=== PATIENT | female | born 1970 | race Caucasian/White ===

== ENCOUNTER 2016-06-21 11:51 | Outpatient (RCR) | payer OTHER ==
--- OUTSIDE RECORDS SUMMARY | 2016-05-02 09:04 | XMS REPORT | Continuity of Care Document ---
Author Author [facility] Organization [facility] Address Unknown Phone Unavailable Care Team Providers Care Sr. Payroll Processor Name Role Phone DIA SNELL DO PCP Insurance Providers Payer Name Policy Number Subscriber Name Relationship Enter Insurance Name [id number] Bishnu Mcguire [facility] [id number] iBshnu Mcguire Advance Directives Directive Response Recorded Date/Time Advance Directives No 11/13/14 11:50am Health Care Power of Fish Warden Yes 11/13/14 11:50am Organ Donor No 11/13/14 11:50am Problems No problem information available. Medications Current Home Medications Medication Dose Units Route Directions Days/Qty Instructions Start Date Lisinopril/Hydrochlorothiazide 1 Tab 2 Tab Oral Daily 11/06/14 Metformin Hcl (Glucophage Xr) 500 Mg 500 Mg Oral Daily With Meal Cyanocobalamin 1,000 Mcg 1,000 Mcg Oral Daily 11/06/14 Multivitamins 1 Each 1 Each Oral Daily 11/06/14 Hydrocodone/Acetaminophen 1 Each 1-2 Tab Oral Every 4HRS as needed for Pain 40 11/13/14 Levothyroxine Sodium 112 Mcg 112 Mcg Oral Daily 30 11/14/14 Past Home Medications Medication Directions Ordered Status [Simvastatin] , Daily 06/09/11 Discontinued [Onglyza] , Daily 06/09/11 Discontinued Social History Social History Problem Response Recorded Date/Time Alcohol Use Occasionally Uses 11/13/2014 11:50am Recreational Drug Use No 11/13/2014 11:50am Recent Foreign Travel No 08/13/2015 2:41pm Hospital Discharge Instructions No hospital discharge instructions. Plan of Care Prescriptions See Medication Section Functional Status No functional status results. Allergies, Adverse Reactions, Alerts No known allergies. Immunizations No immunization records. Vital Signs No known vital signs results. Results Laboratory Results Test Name Result Units Flags Reference Collection Date/Time Result Date/ Time Comments White Blood Count 6.3 10^3/uL 4.3-11.0 11/09/2015 2:07pm 11/09/2015 2: 12pm Red Blood Count 4.18 10^6/uL L 4.35-5.85 11/09/2015 2:07pm 11/09/2015 2: 12pm Hemoglobin 12.1 G/DL 11.5-16.0 11/09/2015 2:07pm 11/09/2015 2:12pm Hematocrit 38 % 35-52 11/09/2015 2:0711/09/2015 2:12pm Mean Corpuscular Volume 91 FL 80-99 11/09/2015 2:07pm 11/09/2015 2: 12pm Mean Corpuscular Hemoglobin 29 PG 25-34 11/09/2015 2:07pm 11/09/2015 2: 12pm Mean Corpuscular Hemoglobin Concent 32 G/DL 32-36 11/09/2015 2:07 2:12pm Red Cell Distribution Width 14.6 % H 10.0-14.5 11/09/2015 2:07pm 2015 2:12pm Platelet Count 300 10^3/uL 130-400 11/09/2015 2:07pm 11/09/2015 2:12pm Mean Platelet Volume 9.2 FL 7.4-10.4 11/09/2015 2:07pm 11/09/2015 2: 12pm Neutrophils (%) (Auto) 70 % 42-75 11/09/2015 2:07pm 11/09/2015 2:12pm Lymphocytes (%) (Auto) 20 % 12-44 11/09/2015 2:0711/09/2015 2:12pm Monocytes (%) (Auto) 8 % 0-12 11/09/2015 2:11/09/2015 2:12pm Eosinophils (%) (Auto) 2 % 0-10 11/09/2015 2:11/09/2015 2:12pm Basophils (%) (Auto) 1 % 0-10 11/09/2015 2:11/09/2015 2:12pm Neutrophils # (Auto) 4.4 X 10^3 1.8-7.8 11/09/2015 2:0711/09/2015 2: 12pm Lymphocytes # (Auto) 1.3 X 10^3 1.0-4.0 11/09/2015 2:11/09/2015 2: 12pm Monocytes # (Auto) 0.5 X 10^3 0.0-1.0 11/09/2015 2:0711/09/2015 2: 12pm Eosinophils # (Auto) 0.1 10^3/uL 0.0-0.3 11/09/2015 2:11/09/2015 2 :12pm Basophils # (Auto) 0.0 10^3/uL 0.0-0.1 11/09/2015 2:0711/09/2015 2: 12pm Sodium Level 137 MMOL/L 135-145 11/09/2015 2:0711/09/2015 2:38pm Potassium Level 4.2 MMOL/L 3.6-5.0 11/09/2015 2:11/09/2015 2:38pm Chloride Level 105 MMOL/L 98-107 11/09/2015 2:11/09/2015 2:38pm Carbon Dioxide Level 22 MMOL/L 21-32 11/09/2015 2:0711/09/2015 2: 38pm Anion Gap 10 MMOL/L 5-14 11/09/2015 2:0711/09/2015 2:38pm Blood Urea Nitrogen 21 MG/DL H 7-18 11/09/2015 2:0711/09/2015 2:38pm Creatinine 1.19 MG/DL 0.60-1.30 11/09/2015 2:0711/09/2015 2:38pm BUN/Creatinine Ratio 18 11/09/2015 2:0711/09/2015 2:38pm Estimat Glomerular Filtration Rate 49 11/09/2015 2:07pm 11/09/2015 2:38pm GFR INTERPRETIVE DATA UNITS FOR ESTIMATED GFR (eGFR): mL/min/1.73 M2 REFERENCE RANGE FOR ESTIMATED GFR (eGFR) eGFR NORMAL eGFR >60 MODERATELY DECREASED eGFR 30-59 SEVERLY DECREASED eGFR 15-29 KIDNEY FAILURE <15 (OR DIALYSIS) Glucose Level 108 MG/DL H 70-105 11/09/2015 2:07pm 11/09/2015 2:38pm Calcium Level 9.3 MG/DL 8.5-10.1 11/09/2015 2:07pm 11/09/2015 2:38pm Total Bilirubin 0.2 MG/DL 0.1-1.0 11/09/2015 2:07pm 11/09/2015 2:38pm Alkaline Phosphatase 67 U/L 40-136 11/09/2015 2:07pm 11/09/2015 2:38pm Aspartate Amino Transf (AST/SGOT) 16 U/L 5-34 11/09/2015 2:07pm 2015 2:38pm Alanine Aminotransferase (ALT/SGPT) 23 U/L 0-55 11/09/2015 2:07pm 11/08 2:38pm Total Protein 6.8 G/DL 6.4-8.2 11/09/2015 2:07pm 11/09/2015 2:38pm Albumin 3.8 G/DL 3.2-4.5 11/09/2015 2:07pm 11/09/2015 2:38pm Thyroid Stimulating Hormone (TSH) 0.03 UIU/ML L 0.35-4.94 11/09/2015 2: 0711/09/2015 3:00pm Thyroglobulin Antibody 0.04 Units 0.00-0.50 11/09/2015 2:07pm 2015 4:02pm Test performed at [facility], CLIA# [id number] Procedures No known history of procedures. Encounters Encounter Location Arrival/Admit Date Discharge/Depart Date Attending Provider Discharged Recurring [facility] 11/09/15 1:59pm 11:59pm ABDIEL CARRENO
[2016-05-02 09:47] LABS: BASOPHILS % (AUTO) 1 % (0-10); EOSINOPHILS # (AUTO) 0.1 10^3/uL (0.0-0.3); EOSINOPHILS % (AUTO) 2 % (0-10); LYMPHOCYTES # (AUTO) 1.1 X 10^3 (1.0-4.0); LYMPHOCYTES % (AUTO) 19 % (12-44); MEAN CORPUSCULAR HEMOGLOBIN 30 PG (25-34); MEAN CORPUSCULAR HGB CONC 33 G/DL (32-36); MEAN CORPUSCULAR VOLUME 91 FL (80-99); MEAN PLATELET VOLUME 9.2 FL (7.4-10.4); MONOCYTES # (AUTO) 0.3 X 10^3 (0.0-1.0); MONOCYTES % (AUTO) 5 % (0-12); NEUTROPHILS # (AUTO) 4.3 X 10^3 (1.8-7.8); NEUTROPHILS % (AUTO) 74 % (42-75); PLATELET COUNT 225 10^3/uL (130-400); RED BLOOD COUNT 4.57 10^6/uL (4.35-5.85); RED CELL DISTRIBUTION WIDTH 14.2 % (10.0-14.5); WHITE BLOOD COUNT 5.8 10^3/uL (4.3-11.0)
[2016-05-02 10:25] LABS: ALANINE AMINOTRANSFERASE 22 U/L (0-55); ALBUMIN 3.8 G/DL (3.2-4.5); ANION GAP 8 MMOL/L (5-14); ASPARTATE AMINO TRANSFERASE 13 U/L (5-34); BILIRUBIN,TOTAL 0.3 MG/DL (0.1-1.0); BLOOD UREA NITROGEN 13 MG/DL (7-18); BUN/CREATININE RATIO 14; CALCIUM 9.6 MG/DL (8.5-10.1); CARBON DIOXIDE 25 MMOL/L (21-32); CHLORIDE 105 MMOL/L (98-107); CREATININE SERUM 0.91 MG/DL (0.60-1.30); GFR ESTIMATED > 60; GLUCOSE 169 MG/DL (70-105); SODIUM 138 MMOL/L (135-145); TOTAL PROTEIN 6.9 G/DL (6.4-8.2)
[2016-05-02 10:45] LABS: THYROID STIMULATING HORMONE 0.04 UIU/ML (0.35-4.94)
[2016-05-04 07:59] LABS: THYROGLOBULIN AUTOANTIBODY PT 0.05 Units (0.00-0.50)
[2016-05-05 07:16] LABS: THYROGLOBULIN LEVELC 3.61 ng/mL (1.60-59.90)
[~2016-06-21 11:51] MED LIST: CYAN10007 PO; HYDR-3729 PO; HYDR-757 PO; LISI1TAB8 PO; LVT.112T PO; METF500T8 PO; MULT1CAP27 PO; ONGLYZA; SIMVASTATIN
== END 2016-07-31 | disposition home or self-care (01) ==
LOC: ONC 11:51
PROVIDERS: ATTEND Internal Medicine Hematology & Oncology
DX: C73 Malignant neoplasm of thyroid gland (principal); E89.0 Postprocedural hypothyroidism; Z79.899 Other long term (current) drug therapy
CPT/HCPCS: 36415; 80053; 84432; 84443; 85025; 86800; 99213

== ENCOUNTER 2016-08-02 14:42 | Outpatient (RCR) | payer OTHER ==
--- OUTSIDE RECORDS SUMMARY | 2016-08-02 14:45 | XMS REPORT | Continuity of Care Document ---
Author Author [facility] Organization [facility] Address Unknown Phone Unavailable Care Team Providers Care Neuropsychology Director Name Role Phone DIA SNELL DO PCP Insurance Providers Payer Name Policy Number Subscriber Name Relationship Enter Insurance Name [id number] Bishnu Mcguire [facility] [id number] Bishnu Mcguire Advance Directives Directive Response Recorded Date/Time Advance Directives No 11/13/14 11:50am Health Care Power of Wellness Assistant Yes 11/13/14 11:50am Organ Donor No 11/13/14 [...] 11/09/2015 2:07pm 2015 4:02pm Test performed at [facility], CLIA# [id number] Procedures No known history of procedures. Encounters Encounter Location Arrival/Admit Date Discharge/Depart Date Attending Provider Discharged Recurring [facility] 11/09/15 1:59pm 11:59pm ABDIEL CARRENO
[2016-08-02 14:51] LABS: BASOPHILS % (AUTO) 0 % (0-10); EOSINOPHILS # (AUTO) 0.2 10^3/uL (0.0-0.3); EOSINOPHILS % (AUTO) 2 % (0-10); LYMPHOCYTES # (AUTO) 1.7 X 10^3 (1.0-4.0); LYMPHOCYTES % (AUTO) 23 % (12-44); MEAN CORPUSCULAR HEMOGLOBIN 30 PG (25-34); MEAN CORPUSCULAR HGB CONC 33 G/DL (32-36); MEAN CORPUSCULAR VOLUME 90 FL (80-99); MONOCYTES # (AUTO) 0.4 X 10^3 (0.0-1.0); MONOCYTES % (AUTO) 6 % (0-12); NEUTROPHILS % (AUTO) 69 % (42-75); PLATELET COUNT 241 10^3/uL (130-400); RED BLOOD COUNT 4.56 10^6/uL (4.35-5.85); RED CELL DISTRIBUTION WIDTH 14.1 % (10.0-14.5); WHITE BLOOD COUNT 7.3 10^3/uL (4.3-11.0)
[2016-08-02 15:17] LABS: ALANINE AMINOTRANSFERASE 28 U/L (0-55); ANION GAP 9 MMOL/L (5-14); ASPARTATE AMINO TRANSFERASE 19 U/L (5-34); BILIRUBIN,TOTAL 0.3 MG/DL (0.1-1.0); BLOOD UREA NITROGEN 18 MG/DL (7-18); BUN/CREATININE RATIO 19; CALCIUM 9.4 MG/DL (8.5-10.1); CARBON DIOXIDE 25 MMOL/L (21-32); CHLORIDE 105 MMOL/L (98-107); CREATININE SERUM 0.97 MG/DL (0.60-1.30); GFR ESTIMATED > 60; GLUCOSE 96 MG/DL (70-105); SODIUM 139 MMOL/L (135-145); TOTAL PROTEIN 7.1 G/DL (6.4-8.2)
[2016-08-02 15:39] LABS: THYROID STIMULATING HORMONE 0.08 UIU/ML (0.35-4.94)
[2016-08-02 15:46] LABS: BILIRUBIN,URINE NEGATIVE (NEGATIVE); KETONES,URINE NEGATIVE (NEGATIVE); LEUKOCYTE ESTERASE ,URINE 1+ (NEGATIVE); NITRITE,URINE NEGATIVE (NEGATIVE); PH,URINE 5 (5-9); PROTEIN,URINE NEGATIVE (NEGATIVE); UROBILINOGEN,URINE NORMAL (NORMAL)
[2016-08-02 15:56] LABS: SQUAMOUS EPITHELIAL CELL,UR 25-50 /HPF
[2016-08-03 13:27] LABS: THYROGLOBULIN AUTOANTIBODY PT 0.04 Units (0.00-0.50)
[2016-08-04 07:47] LABS: THYROGLOBULIN LEVELC 4.95 ng/mL (1.60-59.90)
== END 2016-10-31 | disposition home or self-care (01) ==
LOC: ONC 14:42
PROVIDERS: ATTEND Internal Medicine Hematology & Oncology
DX: C73 Malignant neoplasm of thyroid gland (principal); E89.0 Postprocedural hypothyroidism; Z79.899 Other long term (current) drug therapy
CPT/HCPCS: 36415; 80053; 81000; 84432; 84443; 85025; 86800; 99213

== ENCOUNTER 2016-11-02 14:34 | Outpatient (RCR) | payer OTHER ==
[2016-11-02 15:00] LABS: BASOPHILS % (AUTO) 1 % (0-10); EOSINOPHILS # (AUTO) 0.1 10^3/uL (0.0-0.3); EOSINOPHILS % (AUTO) 2 % (0-10); LYMPHOCYTES # (AUTO) 1.5 X 10^3 (1.0-4.0); LYMPHOCYTES % (AUTO) 23 % (12-44); MEAN CORPUSCULAR HEMOGLOBIN 30 PG (25-34); MEAN CORPUSCULAR HGB CONC 33 G/DL (32-36); MEAN CORPUSCULAR VOLUME 92 FL (80-99); MEAN PLATELET VOLUME 9.7 FL (7.4-10.4); MONOCYTES # (AUTO) 0.5 X 10^3 (0.0-1.0); MONOCYTES % (AUTO) 8 % (0-12); NEUTROPHILS # (AUTO) 4.5 X 10^3 (1.8-7.8); NEUTROPHILS % (AUTO) 67 % (42-75); PLATELET COUNT 231 10^3/uL (130-400); RED BLOOD COUNT 4.33 10^6/uL (4.35-5.85); RED CELL DISTRIBUTION WIDTH 14.8 % (10.0-14.5); WHITE BLOOD COUNT 6.8 10^3/uL (4.3-11.0)
[2016-11-02 15:17] LABS: ALANINE AMINOTRANSFERASE 31 U/L (0-55); ALBUMIN 3.9 G/DL (3.2-4.5); ANION GAP 9 MMOL/L (5-14); ASPARTATE AMINO TRANSFERASE 25 U/L (5-34); BILIRUBIN,TOTAL 0.3 MG/DL (0.1-1.0); BLOOD UREA NITROGEN 20 MG/DL (7-18); BUN/CREATININE RATIO 21; CALCIUM 9.4 MG/DL (8.5-10.1); CARBON DIOXIDE 23 MMOL/L (21-32); CHLORIDE 106 MMOL/L (98-107); CREATININE SERUM 0.96 MG/DL (0.60-1.30); GFR ESTIMATED > 60; GLUCOSE 122 MG/DL (70-105); POTASSIUM 3.9 MMOL/L (3.6-5.0); SODIUM 138 MMOL/L (135-145); TOTAL PROTEIN 7.3 G/DL (6.4-8.2)
[2016-11-02 15:36] LABS: THYROID STIMULATING HORMONE 0.05 UIU/ML (0.35-4.94)
[2016-11-03 07:22] LABS: THYROGLOBULIN LEVELC 2.73 ng/mL (1.60-59.90)
[2016-11-04 07:02] LABS: THYROGLOBULIN AUTOANTIBODY PT 0.04 Units (0.00-0.50)
== END 2017-01-31 | disposition home or self-care (01) ==
LOC: ONC 14:34
PROVIDERS: ATTEND Internal Medicine Hematology & Oncology
DX: C73 Malignant neoplasm of thyroid gland (principal); E89.0 Postprocedural hypothyroidism; Z79.899 Other long term (current) drug therapy
CPT/HCPCS: 36415; 80053; 84432; 84443; 85025; 86800; 99213

== ENCOUNTER → 2017-01-02 | Outpatient (CLI) | payer OTHER ==
--- NOTE | 2017-01-02 19:01 | Diagnostic Imaging Report ---
Bilateral screening mammogram. The current study was also evaluated with a Computer Aided Detection (CAD) system. INDICATION: Screening. No current complaints stated on the questionnaire. COMPARISON: 12/31/15. FINDINGS: The breasts are composed of heterogeneously dense parenchyma which may decrease mammographic sensitivity. There is no mass, architectural distortion or suspicious cluster of calcification. Allowing for technique and positional differences, no suspicious change is seen. IMPRESSION: No significant change. ACR BI-RADS Category 2: Benign findings. Result letter will be mailed to the patient. Note: At least 10% of breast cancer is not imaged by mammography. Dictated by: Dictated on workstation # [id number]
== END ==
LOC: RAD 10:44
PROVIDERS: ATTEND Nurse Practitioner Adult Health
DX: Z12.31 Encounter for screening mammogram for malignant neoplasm of breast (principal)
CPT/HCPCS: 77067

== ENCOUNTER 2017-02-13 12:47 | Outpatient (RCR) | payer OTHER ==
[2017-02-13 12:51] LABS: BASOPHILS % (AUTO) 0 % (0-10); EOSINOPHILS # (AUTO) 0.1 10^3/uL (0.0-0.3); EOSINOPHILS % (AUTO) 2 % (0-10); LYMPHOCYTES # (AUTO) 1.8 X 10^3 (1.0-4.0); LYMPHOCYTES % (AUTO) 19 % (12-44); MEAN CORPUSCULAR HEMOGLOBIN 30 PG (25-34); MEAN CORPUSCULAR HGB CONC 32 G/DL (32-36); MEAN CORPUSCULAR VOLUME 92 FL (80-99); MEAN PLATELET VOLUME 9.2 FL (7.4-10.4); MONOCYTES # (AUTO) 0.6 X 10^3 (0.0-1.0); MONOCYTES % (AUTO) 7 % (0-12); NEUTROPHILS # (AUTO) 6.7 X 10^3 (1.8-7.8); NEUTROPHILS % (AUTO) 72 % (42-75); PLATELET COUNT 250 10^3/uL (130-400); RED BLOOD COUNT 4.41 10^6/uL (4.35-5.85); RED CELL DISTRIBUTION WIDTH 15.4 % (10.0-14.5); WHITE BLOOD COUNT 9.3 10^3/uL (4.3-11.0)
[2017-02-13 13:43] LABS: ALBUMIN 3.7 GM/DL (3.2-4.5); BILIRUBIN,TOTAL 0.4 MG/DL (0.1-1.0); CALCIUM 9.5 MG/DL (8.5-10.1); CREATININE SERUM 1.16 MG/DL (0.60-1.30); POTASSIUM 3.8 MMOL/L (3.6-5.0)
[2017-02-13 14:03] LABS: THYROID STIMULATING HORMONE 0.35 UIU/ML (0.35-4.94)
[2017-02-15 14:09] LABS: THYROGLOBULIN AUTOANTIBODY PT 0.04 Units (0.00-0.50)
[2017-02-16 09:49] LABS: THYROGLOBULIN LEVELC 3.32 ng/mL (1.60-59.90)
== END 2017-03-25 | disposition home or self-care (01) ==
LOC: ONC 12:47
PROVIDERS: ATTEND Internal Medicine Hematology & Oncology
DX: C73 Malignant neoplasm of thyroid gland (principal); E89.0 Postprocedural hypothyroidism; Z79.899 Other long term (current) drug therapy
CPT/HCPCS: 36415; 80053; 84432; 84443; 85025; 86800; 99213

== ENCOUNTER → 2018-01-05 | Outpatient (CLI) | payer OTHER ==
--- NOTE | 2018-01-05 10:52 | Diagnostic Imaging Report ---
Indication: Routine screening. Comparison is made with prior mammograms from 01/02/2017 and 12/31/2015. 2-D and 3-D bilateral screening mammography was performed with CAD. Scattered fibronodular densities are identified bilaterally. No mass or malignant-appearing calcifications are seen. Axillae are unremarkable. Impression: BI-RADS category 1. No mammographic features suspicious for malignancy are identified. ACR BI-RADS Category 1: Negative. Result letter will be mailed to the patient. Note: At least 10% of breast cancer is not imaged by mammography. Dictated by: Dictated on workstation # [id number]
== END ==
LOC: RAD 09:09
PROVIDERS: ATTEND Family Medicine
DX: Z12.31 Encounter for screening mammogram for malignant neoplasm of breast (principal)
CPT/HCPCS: 77067

== ENCOUNTER 2018-02-13 14:29 | Outpatient (RCR) | payer OTHER ==
[~2018-02-13 14:29] MED LIST changes: +HYDR-4226 PO; -HYDR-757 PO
[2018-02-13 14:56] LABS: BASOPHILS % (AUTO) 1 % (0-10); EOSINOPHILS # (AUTO) 0.2 10^3/uL (0.0-0.3); EOSINOPHILS % (AUTO) 3 % (0-10); HEMATOCRIT 43 % (35-52); HEMOGLOBIN 14.1 G/DL (11.5-16.0); LYMPHOCYTES # (AUTO) 1.8 X 10^3 (1.0-4.0); LYMPHOCYTES % (AUTO) 28 % (12-44); MEAN CORPUSCULAR HEMOGLOBIN 30 PG (25-34); MEAN CORPUSCULAR HGB CONC 33 G/DL (32-36); MEAN CORPUSCULAR VOLUME 92 FL (80-99); MEAN PLATELET VOLUME 9.5 FL (7.4-10.4); MONOCYTES # (AUTO) 0.5 X 10^3 (0.0-1.0); MONOCYTES % (AUTO) 8 % (0-12); NEUTROPHILS # (AUTO) 3.9 X 10^3 (1.8-7.8); NEUTROPHILS % (AUTO) 61 % (42-75); PLATELET COUNT 233 10^3/uL (130-400); RED BLOOD COUNT 4.67 10^6/uL (4.35-5.85); RED CELL DISTRIBUTION WIDTH 14.5 % (10.0-14.5); WHITE BLOOD COUNT 6.5 10^3/uL (4.3-11.0)
[2018-02-13 15:14] LABS: ALANINE AMINOTRANSFERASE 36 U/L (0-55); ALBUMIN 3.9 GM/DL (3.2-4.5); ALKALINE PHOSPHATASE 84 U/L (40-136); BILIRUBIN,TOTAL 0.3 MG/DL (0.1-1.0); BUN/CREATININE RATIO 17; CALCIUM 9.6 MG/DL (8.5-10.1); CARBON DIOXIDE 25 MMOL/L (21-32); CHLORIDE 106 MMOL/L (98-107); CREATININE SERUM 0.92 MG/DL (0.60-1.30); GFR ESTIMATED > 60; GLUCOSE 148 MG/DL (70-105); POTASSIUM 4.3 MMOL/L (3.6-5.0); SODIUM 137 MMOL/L (135-145); TOTAL PROTEIN 7.5 GM/DL (6.4-8.2)
== END 2018-02-23 | disposition home or self-care (01) ==
LOC: ONC 14:29
PROVIDERS: ATTEND Internal Medicine Hematology & Oncology
DX: C73 Malignant neoplasm of thyroid gland (principal); E89.0 Postprocedural hypothyroidism; Z79.899 Other long term (current) drug therapy
CPT/HCPCS: 36415; 80053; 84443; 85025; 99213

== ENCOUNTER 2018-05-23 15:37 | Outpatient (RCR) | payer OTHER ==
[2018-05-23 16:12] LABS: BASOPHILS % (AUTO) 1 % (0-10); EOSINOPHILS # (AUTO) 0.1 10^3/uL (0.0-0.3); EOSINOPHILS % (AUTO) 2 % (0-10); HEMATOCRIT 41 % (35-52); HEMOGLOBIN 13.4 G/DL (11.5-16.0); LYMPHOCYTES # (AUTO) 1.7 X 10^3 (1.0-4.0); LYMPHOCYTES % (AUTO) 26 % (12-44); MEAN CORPUSCULAR HEMOGLOBIN 30 PG (25-34); MEAN CORPUSCULAR HGB CONC 33 G/DL (32-36); MEAN CORPUSCULAR VOLUME 91 FL (80-99); MEAN PLATELET VOLUME 9.5 FL (7.4-10.4); MONOCYTES # (AUTO) 0.5 X 10^3 (0.0-1.0); MONOCYTES % (AUTO) 8 % (0-12); NEUTROPHILS # (AUTO) 4.2 X 10^3 (1.8-7.8); NEUTROPHILS % (AUTO) 63 % (42-75); PLATELET COUNT 227 10^3/uL (130-400); RED BLOOD COUNT 4.46 10^6/uL (4.35-5.85); RED CELL DISTRIBUTION WIDTH 13.9 % (10.0-14.5); WHITE BLOOD COUNT 6.6 10^3/uL (4.3-11.0)
== END 2018-06-26 | disposition home or self-care (01) ==
LOC: ONC 15:37
PROVIDERS: ATTEND Internal Medicine Hematology & Oncology
DX: C73 Malignant neoplasm of thyroid gland (principal); E89.0 Postprocedural hypothyroidism; Z79.899 Other long term (current) drug therapy
CPT/HCPCS: 36415; 84443; 85025

== ENCOUNTER 2018-08-15 14:34 | Outpatient (RCR) | payer BC, OTHER ==
[2018-08-08 15:47] LABS: BASOPHILS % (AUTO) 0 % (0-10); EOSINOPHILS # (AUTO) 0.1 10^3/uL (0.0-0.3); EOSINOPHILS % (AUTO) 2 % (0-10); HEMATOCRIT 43 % (35-52); HEMOGLOBIN 13.9 G/DL (11.5-16.0); LYMPHOCYTES # (AUTO) 1.8 X 10^3 (1.0-4.0); LYMPHOCYTES % (AUTO) 27 % (12-44); MEAN CORPUSCULAR HEMOGLOBIN 29 PG (25-34); MEAN CORPUSCULAR HGB CONC 32 G/DL (32-36); MEAN CORPUSCULAR VOLUME 91 FL (80-99); MEAN PLATELET VOLUME 9.5 FL (7.4-10.4); MONOCYTES # (AUTO) 0.5 X 10^3 (0.0-1.0); MONOCYTES % (AUTO) 7 % (0-12); NEUTROPHILS # (AUTO) 4.2 X 10^3 (1.8-7.8); NEUTROPHILS % (AUTO) 63 % (42-75); PLATELET COUNT 239 10^3/uL (130-400); RED CELL DISTRIBUTION WIDTH 14.3 % (10.0-14.5); WHITE BLOOD COUNT 6.7 10^3/uL (4.3-11.0)
[2018-08-08 16:10] LABS: ALANINE AMINOTRANSFERASE 46 U/L (0-55); ALKALINE PHOSPHATASE 97 U/L (40-136); BILIRUBIN,TOTAL 0.3 MG/DL (0.1-1.0); BUN/CREATININE RATIO 24; CALCIUM 9.6 MG/DL (8.5-10.1); CARBON DIOXIDE 26 MMOL/L (21-32); CHLORIDE 104 MMOL/L (98-107); CREATININE SERUM 0.89 MG/DL (0.60-1.30); GFR ESTIMATED > 60; GLUCOSE 139 MG/DL (70-105); POTASSIUM 4.5 MMOL/L (3.6-5.0); SODIUM 138 MMOL/L (135-145); TOTAL PROTEIN 7.3 GM/DL (6.4-8.2)
[2018-08-29] MEDS ORDERED: SITA1TBM7 PO (14:14)
[2018-08-29] MEDS ORDERED: LISI-552 PO (14:14)
[2018-08-29] MEDS ORDERED: LEVO125T6 PO (14:14)
[2018-08-29] MEDS ORDERED: CYAN50005 PO (14:14)
[2018-08-29] MEDS ORDERED: MULT-192 PO (14:14)
[2018-08-29] MEDS ORDERED: CHOL200014 PO (14:14)
== END 2018-11-06 | disposition home or self-care (01) ==
LOC: ONC 14:34
PROVIDERS: ATTEND Internal Medicine Hematology & Oncology
DX: C73 Malignant neoplasm of thyroid gland (principal); E89.0 Postprocedural hypothyroidism; Z79.899 Other long term (current) drug therapy
CPT/HCPCS: 36415; 80053; 84443; 85025; 86800; 99213

== ENCOUNTER 2018-08-29 14:17 | Outpatient (CLI) | payer BC ==
[~2018-08-29] VITALS: Ht 170.2 cm; Wt 98.9 kg
[~2018-08-29 14:17] MED LIST changes: +CHOL200014 PO; +CYAN50005 PO; +LEVO125T6 PO; +LISI-552 PO; +MULT-192 PO; +SITA1TBM7 PO
== END 2018-08-29 14:29 | disposition home or self-care (01) ==
LOC: PREOP 14:17
PROVIDERS: ATTEND Surgery
DX: Z01.818 Encounter for other preprocedural examination (principal)

== ENCOUNTER 2018-09-03 07:38 | Day surgery (SDC) | payer BC ==
[~2018-09-03] VITALS: Ht 170.2 cm; Wt 98.9 kg
[2018-09-03 07:50] VITALS: BP 133/90
[2018-09-03] MEDS ORDERED: NS IV 500 ML 500 ML IV PRN (07:50)
[2018-09-03] MEDS ORDERED: NS IV 500 ML 500 ML ONE (07:51)
[2018-09-03] MEDS ORDERED: fentaNYL INJECTION 100 MCG/2 ML AMP IVP ONE (08:00)
[2018-09-03] MEDS ORDERED: MIDAZOLAM 2 MG/2 ML (VERSED) VIAL IVP ONE (08:00)
--- NOTE | 2018-09-03 08:48 | History & Physicial ---
History of Present Illness History of Present Illness Reason for visit/HPI to undergo screening colonoscopy. No family history of colon cancer Date of Admission 09/03/18 Date Seen by a Provider: Sep 03, 2018 Time Seen by a Provider: 08:47 I consulted on this patient on 09/03/18 08:47 Attending Physician Kemal Corrales MD Admitting Physician Leydi Spencer DO Consult Allergies and Home Medications Allergies Coded Allergies: No Known Drug Allergies (Unverified , 06/09/11) Home Medications Cholecalciferol (Vitamin D3) 2,000 Unit Tablet, 2,000 UNIT PO DAILY, (Reported) Cyanocobalamin (Vitamin B-12) 5,000 Mcg Tab.rapdis, 5,000 MCG PO DAILY, ( Reported) Levothyroxine Sodium 125 Mcg Tablet, 125 MCG PO DAILY, (Reported) Lisinopril 20 Mg Tablet, 20 MG PO DAILY, (Reported) Multivitamin 1 Each Tab.chew, 1 EACH PO DAILY, (Reported) Sitagliptin Phos/Metformin HCl 1 Each Tbmp.24hr, 1 EACH PO DAILY, (Reported) Patient Home Medication List Home Medication List Reviewed: Yes Past Bqefywb-Csmdkd-Qvwles Hx Patient Social History Marrital Status: Employed/Student: employed Alcohol Use: Occasionally Uses Recreational Drug Use: No Smoking Status: Never a Smoker 2nd Hand Smoke Exposure: No Recent Foreign Travel: No Contact w/other who traveled: No Recent Hopitalizations: No Recent Infectious Disease Expo: No Seasonal Allergies Seasonal Allergies: No Surgeries Yes (ROOT CANALS) Thyroidectomy Respiratory No Cardiovascular Yes Hypertension Neurological No Reproductive System Hx Reproductive Disorders: No Genitourinary No Gastrointestinal No Musculoskeletal No Endocrine History of Endocrine Disorders: Yes (PRE-DIABETIC, MULTINODULAR GOITER- THYROIDECTOMY) HEENT History of HEENT Disorders: No Cancer Yes Thyroid Type of Treatment: Radiation, Surgical Intervention Psychosocial History of Psychiatric Problem: No Integumentary History of Skin or Integumenta: No Blood Transfusions History of Blood Disorders: No Family Medical History Family Hx: Arthritis 19 FATHER 19 MOTHER Hypertension 19 FATHER 19 MOTHER Parkinson's disease 19 FATHER Respiratory disorder 19 MOTHER (LUNG CA) Thyroid disease 19 MOTHER G8 SISTER No Family History of: AIDS Abdominal aortic aneurysm Alcoholism Asthma Cancer of mouth Cardiovascular disease Cataracts Colon cancer Completed stroke Diabetes mellitus Drug abuse Kidney disease Myocardial infarction Prostate cancer Psychosocial problem Seizure disorder Severe allergy Review of Systems Constitutional: no symptoms reported EENTM: no symptoms reported Respiratory: no symptoms reported Cardiovascular: no symptoms reported Gastrointestinal: no symptoms reported Musculoskeletal: no symptoms reported Skin: no symptoms reported Psychiatric/Neurological: No Symptoms Reported Physical Exam Vital Signs Vital Signs - First Documented 09/03/18 07:50 Temp 97.7 Pulse 92 Resp 18 B/P (MAP) 133/90 (104) Pulse Ox 99 Capillary Refill : Height, Weight, BMI Height: 5'7.00" Weight: 218lbs. 0.0oz. 98.071663dj; 34.1 BMI Method:Stated General Appearance: No Apparent Distress Neck: Normal Inspection Respiratory: Lungs Clear Cardiovascular: Regular Rate, Rhythm Gastrointestinal: Non Tender, Soft Rectal: Deferred Extremity: Normal Inspection Neurologic/Psychiatric: Oriented x3 Skin: Warm/Dry Assessment/Plan Assessment and Plan lady here to undergo screening colonoscopy. Discussed in detail. Admission Diagnosis Admission Status: Other (Outpt Proc) KEMAL CORRALES MD Sep 03, 2018 08:48
--- NOTE | 2018-09-03 08:49 | Conscious Sedation/ASA ---
Conscious Sedation Pre-Proced Time 08:48 ASA Score 2 For ASA 3 and 4: Consider anesthesia and medical clearance. Also, for patients with a history of failed moderate sedation consider anesthesia. Airway Lungs Heart ASA score ASA 1: a normal healthy patient ASA 2: a patient with a mild systemic disease (mid diabetes, controlled hypertension, obesity ASA 3: a patient with a severe systemic disease that limits activity (angina , COPD, prior Myocardial infarction) ASA 4: a patient with an incapacitating disease that is a constant threat to life (CHF, renal failure) ASA 5: a moribund patient not expected to survive 24 hrs. (ruptured aneurysm) ASA 6: a declared brain- patient whose organs are being harvested. For emergent operations, add the letter E after the classification Mallampati Classification Grade 1 Sedation Plan Discussed options with patient/fam The patient is an appropriate candidate to undergo the planned procedure, sedation, and anesthesia. The patient immediately re-assessed prior to indication. KEMAL CARDENAS MD Sep 03, 2018 08:49
[2018-09-03] MEDS ORDERED: fentaNYL INJECTION 100 MCG/2 ML AMP ONE (08:55)
[2018-09-03] MEDS ORDERED: MIDAZOLAM 2 MG/2 ML (VERSED) VIAL ONE ×4 (08:55)
--- NOTE | 2018-09-03 09:09 | Endo Procedure Record ---
Endo Procedure Report Date of Procedure Last Colonoscopy: No Sep 03, 2018 Surgeon (s) KEMAL CARDENAS MD Post Procedure/Op Diagnosis sigmoid diverticulosis Procedure Performed colonoscopy to cecum Description of Procedure Anesthesia Type: Conscious Sedation Specimen(s) collected/removed none Description of the Procedure Indication for the procedure: This lady came in for screening colonoscopy. She denied any relevant family history. Informed consent was obtained after reviewing the procedure in detail. Description of the procedure: She was placed in left lateral decubitus position and her vital signs were monitored. Conscious sedation was achieved using Versed and fentanyl. Digital rectal examination was unremarkable. The colonoscope was then introduced in the rectum and advanced all the way up to the cecum. The quality of bowel preparation was excellent. The scope was then withdrawn slowly and the mucosa examined in a systematic fashion. Finding: Uncomplicated sigmoid diverticulosis. She tolerated the procedure well and was taken back to the nursing area in a stable condition. Impression: Screening colonoscopy. No polyps. No family history. Recommend repeating in 10 years. Copy Copies To 1: DIA SNELL XAVIER M MD Sep 03, 2018 09:09
--- NOTE | 2018-09-03 09:10 | Discharge Inst-Simple/Standard ---
Discharge Inst-Standard Discharge Medications New, Converted or Re-Newed RX: Other Patient Instructions/Follow Up Plan of Care/Instructions/FU: repeat colonoscopy in 10 years Activity as Tolerated: Yes Discharge Diet: No Restrictions KEMAL CARDENAS MD Sep 03, 2018 09:10
[2018-09-03 09:30] VITALS: BP 130/71
[2018-09-03 10:00] VITALS: BP 113/67
[2018-09-03 10:10] VITALS: BP 113/67
== END 2018-09-03 10:10 | disposition home or self-care (01) ==
LOC: ENDO 07:38
PROVIDERS: ATTEND Surgery
DX: Z12.11 Encounter for screening for malignant neoplasm of colon (principal); K57.30 Diverticulosis of large intestine without perforation or abscess without bleeding; I10 Essential (primary) hypertension; R73.03 Prediabetes; Z85.850 Personal history of malignant neoplasm of thyroid; Z92.3 Personal history of irradiation; Z79.899 Other long term (current) drug therapy
CPT/HCPCS: 82962

== ENCOUNTER → 2019-01-07 | Outpatient (CLI) | payer BC ==
--- NOTE | 2019-01-07 19:53 | Diagnostic Imaging Report ---
INDICATION: Routine screening. Comparison is made with prior mammograms from 01/05/2018 and 01/02/2017. 2-D and 3-D bilateral screening mammography was performed. The current study was also evaluated with a Computer Aided Detection (CAD) system. 3-D tomosynthesis was also performed and reviewed. FINDINGS: Scattered fibroglandular densities are identified bilaterally. The parenchymal pattern is stable. No mass or malignant-appearing microcalcifications are seen. The axillae are unremarkable. IMPRESSION: No mammographic features suspicious for malignancy are identified. ACR BI-RADS Category 1: Negative. Result letter will be mailed to the patient. Note: At least 10% of breast cancer is not imaged by mammography. Dictated by: Dictated on workstation # [id number]
== END ==
LOC: RAD 08:23
PROVIDERS: ATTEND Family Medicine
DX: Z12.31 Encounter for screening mammogram for malignant neoplasm of breast (principal)
CPT/HCPCS: 77067

== ENCOUNTER 2019-02-12 14:37 | Outpatient (RCR) | payer BC ==
[2019-02-07 10:51] LABS: BASOPHILS % (AUTO) 0 % (0-10); EOSINOPHILS # (AUTO) 0.1 10^3/uL (0.0-0.3); EOSINOPHILS % (AUTO) 2 % (0-10); HEMATOCRIT 43 % (35-52); HEMOGLOBIN 13.8 G/DL (11.5-16.0); LYMPHOCYTES # (AUTO) 1.4 X 10^3 (1.0-4.0); LYMPHOCYTES % (AUTO) 28 % (12-44); MEAN CORPUSCULAR HEMOGLOBIN 30 PG (25-34); MEAN CORPUSCULAR HGB CONC 32 G/DL (32-36); MEAN CORPUSCULAR VOLUME 92 FL (80-99); MEAN PLATELET VOLUME 9.2 FL (7.4-10.4); MONOCYTES # (AUTO) 0.3 X 10^3 (0.0-1.0); MONOCYTES % (AUTO) 5 % (0-12); NEUTROPHILS # (AUTO) 3.2 X 10^3 (1.8-7.8); NEUTROPHILS % (AUTO) 65 % (42-75); PLATELET COUNT 211 10^3/uL (130-400); RED CELL DISTRIBUTION WIDTH 14.4 % (10.0-14.5)
[2019-02-07 11:12] LABS: ALANINE AMINOTRANSFERASE 60 U/L (0-55); ALBUMIN 3.9 GM/DL (3.2-4.5); ALKALINE PHOSPHATASE 80 U/L (40-136); BILIRUBIN,TOTAL 0.4 MG/DL (0.1-1.0); BUN/CREATININE RATIO 15; CALCIUM 9.3 MG/DL (8.5-10.1); CARBON DIOXIDE 22 MMOL/L (21-32); CHLORIDE 106 MMOL/L (98-107); CREATININE SERUM 0.92 MG/DL (0.60-1.30); GFR ESTIMATED > 60; GLUCOSE 160 MG/DL (70-105); POTASSIUM 4.6 MMOL/L (3.6-5.0); SODIUM 138 MMOL/L (135-145)
== END 2019-05-08 | disposition home or self-care (01) ==
LOC: ONC 14:37
PROVIDERS: ATTEND Internal Medicine Hematology & Oncology
DX: C73 Malignant neoplasm of thyroid gland (principal); E89.0 Postprocedural hypothyroidism; Z79.899 Other long term (current) drug therapy
CPT/HCPCS: 36415; 80053; 84432; 84443; 85025; 86800; 99213

== ENCOUNTER 2019-10-01 12:34 | Outpatient (RCR) | payer BC ==
[2019-08-07 14:50] LABS: BASOPHILS % (AUTO) 0 % (0-10); EOSINOPHILS # (AUTO) 0.1 10^3/uL (0.0-0.3); EOSINOPHILS % (AUTO) 2 % (0-10); HEMATOCRIT 44 % (35-52); HEMOGLOBIN 14.3 G/DL (11.5-16.0); LYMPHOCYTES # (AUTO) 1.9 X 10^3 (1.0-4.0); LYMPHOCYTES % (AUTO) 27 % (12-44); MEAN CORPUSCULAR HEMOGLOBIN 30 PG (25-34); MEAN CORPUSCULAR HGB CONC 33 G/DL (32-36); MEAN CORPUSCULAR VOLUME 92 FL (80-99); MEAN PLATELET VOLUME 9.4 FL (7.4-10.4); MONOCYTES # (AUTO) 0.5 X 10^3 (0.0-1.0); MONOCYTES % (AUTO) 8 % (0-12); NEUTROPHILS # (AUTO) 4.6 X 10^3 (1.8-7.8); NEUTROPHILS % (AUTO) 64 % (42-75); PLATELET COUNT 235 10^3/uL (130-400); RED CELL DISTRIBUTION WIDTH 14.4 % (10.0-14.5); WHITE BLOOD COUNT 7.2 10^3/uL (4.3-11.0)
[2019-08-07 15:17] LABS: ALANINE AMINOTRANSFERASE 46 U/L (0-55); ALBUMIN 4.1 GM/DL (3.2-4.5); ALKALINE PHOSPHATASE 66 U/L (40-136); BILIRUBIN,TOTAL 0.3 MG/DL (0.1-1.0); BUN/CREATININE RATIO 20; CALCIUM 9.9 MG/DL (8.5-10.1); CARBON DIOXIDE 26 MMOL/L (21-32); CHLORIDE 105 MMOL/L (98-107); CREATININE SERUM 0.97 MG/DL (0.60-1.30); GFR ESTIMATED > 60; GLUCOSE 115 MG/DL (70-105); POTASSIUM 4.5 MMOL/L (3.6-5.0); SODIUM 138 MMOL/L (135-145); TOTAL PROTEIN 7.2 GM/DL (6.4-8.2)
== END 2019-11-05 | disposition home or self-care (01) ==
LOC: ONC 12:34
PROVIDERS: ATTEND Internal Medicine Hematology & Oncology
DX: C73 Malignant neoplasm of thyroid gland (principal); E03.9 Hypothyroidism, unspecified; Z79.899 Other long term (current) drug therapy
CPT/HCPCS: 80053; 84432; 84443; 85025; 86800; 99213

== ENCOUNTER → 2020-01-09 | Outpatient (CLI) | payer BC ==
--- NOTE | 2020-01-09 09:51 | Diagnostic Imaging Report ---
INDICATION: Routine screening. Comparison is made with prior mammogram from 01/07/2019 and 01/05/2018. 2-D and 3-D bilateral screening mammography was performed with CAD. Scattered fibroglandular densities are identified bilaterally. The parenchymal pattern is stable. No dominant mass or malignant appearing microcalcifications are seen. Axillae are unremarkable. IMPRESSION: BI-RADS Category 1 No mammographic features suspicious for malignancy are identified. ACR BI-RADS Category 1: Negative. Result letter will be mailed to the patient. Note: At least 10% of breast cancer is not imaged by mammography. Dictated by: Dictated on workstation # [id number]
== END ==
LOC: RAD 07:27
PROVIDERS: ATTEND Family Medicine
DX: Z12.31 Encounter for screening mammogram for malignant neoplasm of breast (principal)
CPT/HCPCS: 77063; 77067

== ENCOUNTER 2020-02-10 14:44 | Outpatient (RCR) | payer BC ==
[2020-01-31 10:49] LABS: BASOPHILS % (AUTO) 1 % (0-10); EOSINOPHILS # (AUTO) 0.1 10^3/uL (0.0-0.3); EOSINOPHILS % (AUTO) 2 % (0-10); HEMATOCRIT 44 % (35-52); HEMOGLOBIN 14.4 G/DL (11.5-16.0); LYMPHOCYTES # (AUTO) 1.7 X 10^3 (1.0-4.0); LYMPHOCYTES % (AUTO) 29 % (12-44); MEAN CORPUSCULAR HEMOGLOBIN 31 PG (25-34); MEAN CORPUSCULAR HGB CONC 33 G/DL (32-36); MEAN CORPUSCULAR VOLUME 93 FL (80-99); MEAN PLATELET VOLUME 9.4 FL (7.4-10.4); MONOCYTES # (AUTO) 0.4 X 10^3 (0.0-1.0); MONOCYTES % (AUTO) 6 % (0-12); NEUTROPHILS # (AUTO) 3.7 X 10^3 (1.8-7.8); NEUTROPHILS % (AUTO) 62 % (42-75); PLATELET COUNT 197 10^3/uL (130-400)
[2020-01-31 11:29] LABS: BILIRUBIN,TOTAL 0.3 MG/DL (0.1-1.0); CALCIUM 9.6 MG/DL (8.5-10.1); CREATININE SERUM 1.05 MG/DL (0.60-1.30); POTASSIUM 4.2 MMOL/L (3.6-5.0); TOTAL PROTEIN 6.9 GM/DL (6.4-8.2)
== END 2020-04-30 | disposition home or self-care (01) ==
LOC: ONC 14:44
PROVIDERS: ATTEND Internal Medicine Hematology & Oncology
DX: C73 Malignant neoplasm of thyroid gland (principal); E03.9 Hypothyroidism, unspecified; Z79.899 Other long term (current) drug therapy
CPT/HCPCS: 80053; 84432; 84443; 85025; 86800; 99213

== ENCOUNTER 2020-07-14 16:21 | Emergency (ER) | payer BC ==
[~2020-07-14] VITALS: Ht 67 cm; Wt 98.0 kg
[2020-07-14 17:00] LABS: BASOPHILS # (AUTO) 0.1 10^3/uL (0.0-0.1); BASOPHILS % (AUTO) 1 % (0-10); EOSINOPHILS # (AUTO) 0.2 10^3/uL (0.0-0.3); EOSINOPHILS % (AUTO) 1 % (0-10); HEMATOCRIT 47 % (35-52); HEMOGLOBIN 15.2 g/dL (11.5-16.0); LYMPHOCYTES # (AUTO) 2.9 10^3/uL (1.0-4.0); LYMPHOCYTES % (AUTO) 23 % (12-44); MEAN CORPUSCULAR HEMOGLOBIN 31 pg (25-34); MEAN CORPUSCULAR HGB CONC 33 g/dL (32-36); MEAN CORPUSCULAR VOLUME 93 fL (80-99); MEAN PLATELET VOLUME 9.8 fL (9.0-12.2); MONOCYTES # (AUTO) 0.9 10^3/uL (0.0-1.0); MONOCYTES % (AUTO) 7 % (0-12); NEUTROPHILS # (AUTO) 8.5 10^3/uL (1.8-7.8); NEUTROPHILS % (AUTO) 67 % (42-75); PLATELET COUNT 261 10^3/uL (130-400); WHITE BLOOD COUNT 12.7 10^3/uL (4.3-11.0)
[2020-07-14 17:03] LABS: ALBUMIN 4.1 GM/DL (3.2-4.5); POTASSIUM 4.8 MMOL/L (3.6-5.0)
[2020-07-14 17:04] LABS: CALCIUM 10.3 MG/DL (8.5-10.1)
[2020-07-14 17:05] LABS: TOTAL PROTEIN 7.8 GM/DL (6.4-8.2)
[2020-07-14 17:06] LABS: INR 0.9 (0.8-1.4); PROTHROMBIN TIME PATIENT 12.8 SEC (12.2-14.7)
[2020-07-14 17:07] LABS: BILIRUBIN,TOTAL 0.3 MG/DL (0.1-1.0)
[2020-07-14 17:09] LABS: CREATININE SERUM 1.05 MG/DL (0.60-1.30)
[2020-07-14 17:12] LABS: MAGNESIUM 1.5 MG/DL (1.6-2.4)
--- NOTE | 2020-07-14 17:22 | NUR ---
RESTING IN BED ET DENIES NEEDS. NOTIFIED WE WERE WAITING ON LAB RESULTS.
--- NOTE | 2020-07-14 17:23 | Diagnostic Imaging Report ---
INDICATION: Chest pain. TIME OF EXAM: 05:06 p.m. COMPARISON: No prior studies are available for comparison. The heart size is normal. The pulmonary vascularity is unremarkable. The lungs are clear. No infiltrate, effusion or pneumothorax is detected. IMPRESSION: No acute cardiopulmonary process is detected. Dictated by: Dictated on workstation # [id number]
[2020-07-14] MEDS ORDERED: ASPIRIN 81 MG CHEW (CHILDREN'S ASA) PO ONE (17:45)
[2020-07-14] MEDS ORDERED: NITROGLYCERIN 0.4 MG SL TABS BTL 25'S SL PRN (17:45)
--- NOTE | 2020-07-14 17:45 | NUR ---
IN TALKING TO THE PT AT THIS TIME.
--- NOTE | 2020-07-14 17:53 | NUR ---
REPORTS PAIN IS 1-2/10. 2ND NITRO HELD. BP 91/63.
--- NOTE | 2020-07-14 18:12 | ED Chest Pain ---
General Chief Complaint: Chest Pain Stated Complaint: IRREGULAR EKG Nursing Triage Note: started having chest heaviness at work and they did an EKG and her dr office called and said to go to ER to make sure she isnt having a heart attack Nursing Sepsis Screen: No Definite Risk Source: patient Exam Limitations: no limitations (MARK ALCAZAR MD) History of Present Illness Date Seen by Provider: Jul 14, 2020 Time Seen by Provider: 16:55 Initial Comments This 50-year-old woman presents to the emergency room with complaints of chest tightness and mild shortness of breath. She also had a little bit of headache at the time. She had 2 episodes of this chest tightness, both occurring at about noon while she was cleaning up the kitchen at work. 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 Her pain is still present at this time and she rates it about 3 or 4 out of 10. It was 5/10 at its worst. She denies any history of cardiac problems but has never had any evaluation for coronary artery disease. She does have risk factors including hypertension and borderline diabetes. She had a COVID-19 around Yg time and has been off of quarantine for a while. These symptoms are new and do not appear to be associated with the Covid infection. She also had a sinus infection last week and was prescribed antibiotics and prednisone. Pain improves with deep breathing and with rest. (MARK ALCAZAR MD) Allergies and Home Medications Allergies Coded Allergies: No Known Drug Allergies (Unverified , 06/09/11) Home Medications Cholecalciferol (Vitamin D3) 2,000 Unit Tablet, 2,000 UNIT PO DAILY, (Reported) Cyanocobalamin (Vitamin B-12) 5,000 Mcg Tab.rapdis, 5,000 MCG PO DAILY, (Reported) Levothyroxine Sodium 125 Mcg Tablet, 125 MCG PO DAILY, (Reported) Lisinopril 20 Mg Tablet, 20 MG PO DAILY, (Reported) Multivitamin 1 Each Tab.chew, 1 EACH PO DAILY, (Reported) Sitagliptin Phos/Metformin HCl 1 Each Tbmp.24hr, 1 EACH PO DAILY, (Reported) Patient Home Medication List Home Medication List Reviewed: Yes (MARK ALCAZAR MD) Review of Systems Review of Systems Constitutional: no symptoms reported EENTM: No Symptoms Reported Respiratory: See HPI Cardiovascular: See HPI Gastrointestinal: No Symptoms Reported Genitourinary: No Symptoms Reported Musculoskeletal: no symptoms reported Skin: no symptoms reported Psychiatric/Neurological: See HPI Endocrine: No Symptoms Reported Hematologic/Lymphatic: No Symptoms Reported (MARK ALCAZAR MD) Past Zehxtrx-Ihtvof-Ibneoy Hx Past Med/Social Hx: Reviewed Nursing Past Med/Soc Hx (MARK ALCAZAR MD) Patient Social History Alcohol Use: Denies Use Smoking Status: Never a Smoker 2nd Hand Smoke Exposure: No Recent Infectious Disease Expo: No Recent Hopitalizations: No (MARK ALCAZAR MD) Seasonal Allergies Seasonal Allergies: No (MARK ALCAZAR MD) Past Medical History Surgeries: Yes (ROOT CA[place]LS) Thyroidectomy Respiratory: No Cardiac: Yes Hypertension Neurological: No Reproductive Disorders: No Genitourinary: No Gastrointestinal: No Musculoskeletal: No Endocrine: Yes (PRE-DIABETIC, MULTINODULAR GOITER-THYROIDECTOMY) HEENT: No Cancer: Yes Thyroid Did You Recieve Any Treatments: Yes What Type of Treatment Did You: Radiation, Surgical Intervention Psychosocial: No Integumentary: No Blood Disorders: No (MARK ALCAZAR MD) Family Medical History Arthritis 19 FATHER 19 MOTHER Hypertension 19 FATHER 19 MOTHER Parkinson's disease 19 FATHER Respiratory disorder 19 MOTHER (LUNG CA) Thyroid disease 19 MOTHER G8 SISTER No Family History of: AIDS Abdominal aortic aneurysm Alcoholism Asthma Cancer of mouth Cardiovascular disease Cataracts Colon cancer Completed stroke Diabetes mellitus Drug abuse Kidney disease Myocardial infarction Prostate cancer Psychosocial problem Seizure disorder Severe allergy Physical Exam Vital Signs Vital Signs - First Documented 07/14/20 16:31 Temp 36.4 Pulse 101 Resp 20 B/P (MAP) 135/89 (104) Pulse Ox 100 O2 Delivery Room Air (FLORENCE LUDWIG) Vital Signs Capillary Refill : Less Than 3 Seconds (MARK ALCAZAR MD) Height, Weight, BMI Height: 5'7.00" Weight: 218lbs. 0.0oz. 98.207520vm; 218.00 BMI Method:Stated General Appearance: No Apparent Distress, WD/WN HEENT: Normal ENT Inspection Neck: Normal Inspection; No JVD Respiratory: Chest Non Tender, Lungs Clear, Normal Breath Sounds, No Accessory Muscle Use, No Respiratory Distress Cardiovascular: Regular Rate, Rhythm, No Edema, No Murmur, Normal Peripheral Pulses Gastrointestinal: Normal Bowel Sounds, Non Tender, Soft Extremity: Normal Inspection, Non Tender, No Calf Tenderness, No Pedal Edema, Other (Negative Abby) Neurologic/Psychiatric: Alert, Oriented x3, No Motor/Sensory Deficits, Normal Mood/Affect, singer back tender II-XII Norm as Tested Skin: Normal Color, Warm/Dry (MARK ALCAZAR MD) Progress/Results/Core Measures Results/Orders Lab Results Laboratory Tests Test 07/14/20 16:43 07/14/20 18:51 Range/Units White Blood Count 12.7 H 4.3-11.0 10^3/uL Red Blood Count 4.98 3.80-5.11 10^6/uL Hemoglobin 15.2 11.5-16.0 g/dL Hematocrit 47 35-52 % Mean Corpuscular Volume 93 80-99 fL Mean Corpuscular Hemoglobin 31 25-34 pg Mean Corpuscular Hemoglobin Concent 33 32-36 g/dL Red Cell Distribution Width 14.5 10.0-14.5 % Platelet Count 261 130-400 10^3/uL Mean Platelet Volume 9.8 9.0-12.2 fL Immature Granulocyte % (Auto) 1 % Neutrophils (%) (Auto) 67 42-75 % Lymphocytes (%) (Auto) 23 12-44 % Monocytes (%) (Auto) 7 0-12 % Eosinophils (%) (Auto) 1 0-10 % Basophils (%) (Auto) 1 0-10 % Neutrophils # (Auto) 8.5 H 1.8-7.8 10^3/uL Lymphocytes # (Auto) 2.9 1.0-4.0 10^3/uL Monocytes # (Auto) 0.9 0.0-1.0 10^3/uL Eosinophils # (Auto) 0.2 0.0-0.3 10^3/uL Basophils # (Auto) 0.1 0.0-0.1 10^3/uL Immature Granulocyte # (Auto) 0.1 0.0-0.1 10^3/uL Prothrombin Time 12.8 12.2-14.7 SEC INR Comment 0.9 0.8-1.4 Activated Partial Thromboplast Time 29 24-35 SEC D-Dimer 0.29 0.00-0.49 UG/ML Sodium Level 137 135-145 MMOL/L Potassium Level 4.8 3.6-5.0 MMOL/L Chloride Level 103 98-107 MMOL/L Carbon Dioxide Level 22 21-32 MMOL/L Anion Gap 12 5-14 MMOL/L Blood Urea Nitrogen 26 H 7-18 MG/DL Creatinine 1.05 0.60-1.30 MG/DL Estimat Glomerular Filtration Rate 55 BUN/Creatinine Ratio 25 Glucose Level 142 H 70-105 MG/DL Calcium Level 10.3 H 8.5-10.1 MG/DL Corrected Calcium 10.2 H 8.5-10.1 MG/DL Magnesium Level 1.5 L 1.6-2.4 MG/DL Total Bilirubin 0.3 0.1-1.0 MG/DL Aspartate Amino Transf (AST/SGOT) 29 5-34 U/L Alanine Aminotransferase (ALT/SGPT) 38 0-55 U/L Alkaline Phosphatase 66 40-136 U/L Myoglobin 127.3 H 10.0-92.0 NG/ML Troponin I < 0.028 < 0.028 <0.028 NG/ML C-Reactive Protein High Sensitivity 0.30 0.00-0.50 MG/DL Total Protein 7.8 6.4-8.2 GM/DL Albumin 4.1 3.2-4.5 GM/DL Thyroid Stimulating Hormone (TSH) 1.27 0.35-4.94 UIU/ML Free Thyroxine 1.19 0.70-1.48 NG/DL (FLORENCE LUDWIG) My Orders Orders - FLORENCE LUDWIG Troponin I (07/14/20 18:49) (FLORENCE LUDWIG) Medications Given in ED Current Medications Medications Dose Ordered Sig/Twin Route Start Time Stop Time Status Last Admin Dose Admin Aspirin 324 mg ONCE ONCE PO 07/14/20 17:45 07/14/20 17:46 DC 07/14/20 17:43 324 MG Nitroglycerin 0.4 mg UD PRN SL 07/14/20 17:45 07/14/20 17:44 0.4 MG (FLORENCE LUDWIG) Vital Signs/I&O 07/14/20 16:31 Temp 36.4 Pulse 101 Resp 20 B/P (MAP) 135/89 (104) Pulse Ox 100 O2 Delivery Room Air (FLORENCE LUDWIG) Blood Pressure Mean: 104 Progress Progress Note : Time: 18:13 Progress Note Patient was given aspirin and nitroglycerin. She now rates her pain as 2/10. She states this was a notable change after receiving nitroglycerin. Initial work-up was fairly unremarkable. Repeat troponin will be drawn at the 2-hour krissy. We will continue to monitor her condition. Care of this patient is being transitioned to Dr. Ludwig at this time. (MARK ALCAZAR MD) Progress Note : Time: 19:43 Progress Note Assumed care of the patient at shift change. I agree with the above documented history and physical exam. We repeated a troponin at 7:00 which is little more than 2 hours after the initial troponin. Her pain started yesterday. Her pain has resolved with a single dose of nitroglycerin. She has not had any resumption of pain. Her second troponin was negative and her heart score is 3 points. Low risk. 0.9-1.7% 30-day MACE. Repeat troponin at 3 hours and if negative, discharge home with outpatient follow-up. Plan to allow her to follow-up with Dr. Reina sometime this week, preferably within the next 24 to 48 hours. We have given her return precautions to return to the ER should she have recurrence of chest pain. She still has her gallbladder intact. She also has a strong history of acid reflux and has been having some problems with GERD in the last couple weeks. (FLORENCE LUDWIG) Initial ECG Impression Date: Jul 14, 2020 Initial ECG Impression Time: 16:40 Initial ECG Rate: 101 Initial ECG Rhythm: S.Tach Comment Sinus tachycardia with no ST elevation or depression. No abnormal intervals or axis deviation. (MARK ALCAZAR MD) Diagnostic Imaging Diagonstic Imaging: Xray Plain Films/CT/US/NM/MRI: chest Comments Chest x-ray viewed by me and report reviewed. See report below: NAME: [facility] REC#: [id number] PT STATUS: REG ER : 1970 PHYSICIAN: MARK ALCAZAR MD ADMIT DATE: 07/14/20/ER Draft Date of Exam:07/14/20 CHEST 1 VIEW, AP/PA ONLY INDICATION: Chest pain. TIME OF EXAM: 05:06 p.m. COMPARISON: No prior studies are available for comparison. The heart size is normal. The pulmonary vascularity is unremarkable. The lungs are clear. No infiltrate, effusion or pneumothorax is detected. IMPRESSION: No acute cardiopulmonary process is detected. Dictated on workstation # [id number] Dict: 07/14/20 1715 Trans: 07/14/20 1722 [id number] Interpreted by: ABEBA BRADY MD (MARK ALCAZAR MD) Departure Impression Primary Impression: Chest pain Qualified Codes: R07.9 - Chest pain, unspecified Disposition: HOME, SELF-CARE Condition: Improved Departure-Patient Inst. Decision time for Depature: 19:45 (FLORENCE LUDWIG) Referrals: CHAD REINA MD [facility] DIA SNELL DO (PCP/Family) Primary Care Physician Patient Instructions: Chest Pain (DC) Add. Discharge Instructions: Call Dr. Reina first thing in the morning and ask for an appointment to further risk stratify your heart in the clinic. Return to the ER promptly if you are having worsening symptoms such as chest pain, shortness of breath etc. All discharge instructions reviewed with patient and/or family. Voiced understanding. Work/School Note: Work Release Form Date Seen in the Emergency Department: Jul 14, 2020 Return to Work: Jul 16, 2020 Restrictions: Need Release from Doctor Copy Copies To 1: CHAD REINA MD [facility] CCDS Copies To 2: DIA SNELL JOSHUA T MD Jul 14, 2020 18:12 FLORENCE LUDWIG Jul 14, 2020 19:46
[2020-07-14 18:53] LABS: FREE T4 (FREE THYROXINE) 1.19 NG/DL (0.70-1.48)
--- NOTE | 2020-07-14 18:54 | NUR ---
REPORT GIVEN TO CLARA.
--- NOTE | 2020-07-14 18:58 | NUR ---
RECIEVED REPORT FROM LUIS ARMANDO MADDEN TO ASSUME CARE OF PT AT THIS TIME.
[2020-07-14 19:57] VITALS: BP 106/72
== END 2020-07-14 19:57 | disposition home or self-care (01) ==
LOC: EDUNIT# 16:21 → ER 16:24
DX: R07.9 Chest pain, unspecified (principal); I10 Essential (primary) hypertension; Z85.850 Personal history of malignant neoplasm of thyroid; Z82.61 Family history of arthritis; Z82.49 Family history of ischemic heart disease and other diseases of the circulatory system
CPT/HCPCS: 36415; 71045; 80053; 83735; 83874; 84439; 84443; 84484; 85025; 85379; 85610; 85730; 86141; 93005; 93041

== ENCOUNTER → 2020-07-14 | Outpatient (CLI) | payer BC | LOC: CARD 14:36 | PROVIDERS: ATTEND Nurse Practitioner Family | DX: R07.9 Chest pain, unspecified (principal); R00.0 Tachycardia, unspecified | CPT/HCPCS: 93005 ==

== ENCOUNTER → 2021-01-11 | Outpatient (CLI) | payer BC ==
[~2021-01-11] MED LIST changes: -LISI-552 PO; +LISI20TA26 PO
--- NOTE | 2021-01-11 11:58 | Diagnostic Imaging Report ---
INDICATION: 2-D and 3-D digital screening with CAD. COMPARISON: 12/2019, 12/2018 and 12/2017 FINDINGS: Scattered fibroglandular densities bilaterally unchanged. No breast mass, spiculated lesion or architectural distortion. There is no suspicious calcifications. IMPRESSION: Stable negative mammograms BI-RADS Category 1 ACR BI-RADS Category 1: Negative. Result letter will be mailed to the patient. Note: At least 10% of breast cancer is not imaged by mammography. Dictated by: Dictated on workstation # [id number]
== END ==
LOC: RAD 07:49
PROVIDERS: ATTEND Family Medicine
DX: Z12.31 Encounter for screening mammogram for malignant neoplasm of breast (principal)
CPT/HCPCS: 77063; 77067

== ENCOUNTER 2021-03-11 14:43 | Outpatient (RCR) | payer BC ==
[2021-01-29 12:33] LABS: BASOPHILS # (AUTO) 0.1 10^3/uL (0.0-0.1); BASOPHILS % (AUTO) 1 % (0-10); EOSINOPHILS # (AUTO) 0.2 10^3/uL (0.0-0.3); EOSINOPHILS % (AUTO) 3 % (0-10); HEMATOCRIT 42 % (35-52); HEMOGLOBIN 13.4 g/dL (11.5-16.0); LYMPHOCYTES # (AUTO) 1.7 10^3/uL (1.0-4.0); LYMPHOCYTES % (AUTO) 29 % (12-44); MEAN CORPUSCULAR HEMOGLOBIN 30 pg (25-34); MEAN CORPUSCULAR HGB CONC 32 g/dL (32-36); MEAN CORPUSCULAR VOLUME 93 fL (80-99); MEAN PLATELET VOLUME 9.6 fL (9.0-12.2); MONOCYTES # (AUTO) 0.4 10^3/uL (0.0-1.0); MONOCYTES % (AUTO) 7 % (0-12); NEUTROPHILS # (AUTO) 3.6 10^3/uL (1.8-7.8); NEUTROPHILS % (AUTO) 60 % (42-75); PLATELET COUNT 209 10^3/uL (130-400)
[2021-01-29 13:01] LABS: ALBUMIN 3.8 GM/DL (3.2-4.5); BILIRUBIN,TOTAL 0.4 MG/DL (0.1-1.0); CALCIUM 9.6 MG/DL (8.5-10.1); CREATININE SERUM 0.91 MG/DL (0.60-1.30); POTASSIUM 4.2 MMOL/L (3.6-5.0); TOTAL PROTEIN 7.2 GM/DL (6.4-8.2)
== END 2021-04-29 | disposition home or self-care (01) ==
LOC: ONC 14:43
PROVIDERS: ATTEND Internal Medicine Hematology & Oncology
DX: C73 Malignant neoplasm of thyroid gland (principal)
CPT/HCPCS: 80053; 84432; 84443; 85025; 86800; 99213

== ENCOUNTER → 2022-01-11 | Outpatient (CLI) | payer BC ==
--- NOTE | 2022-01-11 12:40 | Diagnostic Imaging Report ---
Indication: Routine screening. Comparison is made with prior mammogram 01/11/2021 and 01/09/2020. 2-D and 3-D bilateral screening mammography was performed with CAD. CAD is utilized. The current study was also evaluated with a Computer Aided Detection (CAD) system. Scattered fibroglandular densities are noted bilaterally. A benign nodule central right breast is stable. No spiculated mass or malignant-appearing microcalcifications are identified. Axillae are unremarkable. IMPRESSION: BI-RADS Category 2 No mammographic features suspicious for malignancy are identified. ACR BI-RADS Category 2: Benign findings. Result letter will be mailed to the patient. Note: At least 10% of breast cancer is not imaged by mammography. Dictated by: Dictated on workstation # [id number]
== END ==
LOC: RAD 07:30
PROVIDERS: ATTEND Family Medicine
DX: Z12.31 Encounter for screening mammogram for malignant neoplasm of breast (principal)
CPT/HCPCS: 77063; 77067

== ENCOUNTER → 2022-01-19 | Outpatient (CLI) | payer BC ==
--- NOTE | 2022-01-19 15:50 | Diagnostic Imaging Report ---
PROCEDURE: US Non-ob pelvis comp/trans. INDICATION: POST MENOPAUSAL BLEEDING TECHNIQUE: Multiple real time damon scale sonographic images were obtained of the pelvis transabdominally and endovaginally. CORRELATION STUDY: None FINDINGS: UTERUS: 6.7 x 5.6 x 6.7 cm. ENDOMETRIUM: 1.2 cm. RIGHT OVARY: 2.8 x 1.8 x 2.0 cm. LEFT OVARY: 2.4 x 1.8 x 2.0 cm. There are 2 asymmetric areas of heterogeneity about the uterus. One may contain calcination and echogenic foci measures 3.7 x 2.5 x 3.1 cm. Additional 3.0 x 2.9 x 2.8 cm. The endometrium is rather significantly thickened, particularly in the postmenopausal patient. Slightly more focal hypoechoic areas noted in the endometrial canal with vascularity 1.3 x 0.7 x 0.8 cm reflect a polyp or mass. Right ovary generally unremarkable. There is suggestion of some calcifications in the peripheral aspect left ovary. There is blood flow to the ovaries. Somewhat hypoechoic and heterogeneous area in the cervix with vascularity, 1.2 x 0.9 x 1.1 cm. IMPRESSION: 1. Multiple abnormalities, several which may account for the presentation of postmenopausal bleeding. 2. Masses of the uterus could potentially reflect fibroids. Alternative mass not excluded. 3. Mass with vascularity at the cervix, nonspecific but malignancy is definitely in the differential as well. 4. Rather significantly abnormally thickened endometrium with more focal hypoechoic masslike areas of vascularity. Could potentially reflect a mass or polyp. Neoplasm needs to be excluded. Dictated by: Dictated on workstation # [id number]
== END ==
LOC: RAD 09:10
PROVIDERS: ATTEND Family Medicine
DX: N95.0 Postmenopausal bleeding (principal); N85.8 Other specified noninflammatory disorders of uterus; R93.89 Abnormal findings on diagnostic imaging of other specified body structures
CPT/HCPCS: 76830; 76856

== ENCOUNTER → 2022-01-24 | Outpatient (CLI) | payer BC ==
--- NOTE | 2022-01-24 08:14 | Diagnostic Imaging Report ---
PROCEDURE: CT abdomen and pelvis without contrast. TECHNIQUE: Multiple contiguous axial images were obtained through the abdomen and pelvis without the use of intravenous contrast. Auto Exposure Controls were utilized during the CT exam to meet ALARA standards for radiation dose reduction. INDICATION: Postmenopausal bleeding with uterine mass and hematuria There is mild low-density in the liver indicating steatosis however there is no evidence of focal hepatic lesion. Small amount of sludge or stones in the lumen of the gallbladder without gallbladder wall thickening or pericholecystic fluid. The pancreatic, adrenal gland or splenic lesion is identified. There is punctate calcification in the upper pole of left kidney. Left renal pelvis is also prominent however no ureteric stone is identified. Right kidney and ureter are unremarkable. There is no evidence of appendiceal inflammation. Unopacified bladder is decompressed but otherwise unremarkable. There is a lobular nature of the uterus. This is difficult to further characterize on the noncontrasted study however findings are suggestive of uterine fibroids. No pathologically enlarged adenopathy is identified. There is no evidence of organized fluid collection. There is lower lumbar degenerative facet disease and right lumbar sacral pseudarthrosis. IMPRESSION: Minimal left nephrolithiasis and hepatic steatosis. Lobular nature of the uterus may be due to fibroids although clinical correlation is recommended. Probable small amount of sludge or stones are noted in the gallbladder lumen. Dictated by: Dictated on workstation # [id number]
== END ==
LOC: RAD 07:45
PROVIDERS: ATTEND Family Medicine
DX: N85.8 Other specified noninflammatory disorders of uterus (principal); K76.0 Fatty (change of) liver, not elsewhere classified; R31.9 Hematuria, unspecified
CPT/HCPCS: 74176